=== PATIENT | male | born 1975 | race Hispanic/Latino ===

== ENCOUNTER → 2019-07-26 | Day surgery (SDC) | payer OTHER ==
[~2019-07-26] MED LIST: FENTANYL CITRATE/PF 100MCG/2 ML INJ ONE; LISINOPRIL10 MG PO; MIDAZOLAM HCL 2 MG/2 ML VIAL ONE; PROPOFOL IV EMULSION 10 MG/ML 50 ML VIAL ONE
--- OUTSIDE RECORDS SUMMARY | 2019-07-26 06:04 | XMS REPORT | Encounter Summary ---
Author Organization Unknown Address [address] [place] [address] Phone [phone] Care Team Providers Care Mold Sprayer Name Role Phone Hyun Chaudhry 3 [phone] Reason for Visit New Patient Instructions 1. Gastrointestinal hemorrhage sangrado gastrointestinal: instrucciones de cuidado - [gastrointestinal bleeding: care instructions] upper gastrointestinal endoscopy with biopsy, single or multiple (SURG) 2. Epigastric pain 3. Dark stools 4. Occult blood in stools Discussion Note: None recorded. Plan of Care Patient Instructions Stop all blood thinners 5 days prior to procedure. Nothing by mouth after midnight. Patient must have a responsible licensed commercial collections driver to accompany home after surgery. Only take blood pressure medication the morning of the procedure with sip of water. [facility] scheduling department will contact to schedule pre op date & time. [facility] pre op nurse will inform you time of arrival Reminders Provider Appointments None recorded. Lab None recorded. Referral None recorded. Procedures None recorded. Surgeries Upper Gastrointestinal Endoscopy with Biopsy, Single or Multiple (SURG) 07/06/2019 [facility] (Scheduling) Imaging None recorded. Medications No Medications Reported Medications Administered None recorded. Vitals Height Weight BMI Blood Pressure 5 ft 7 in 211.6 lbs 33.1 kg/m2 150/99 mm[Hg] Lab Results None recorded. Allergies Code Code System Name Reaction Severity Status Onset NKDA Problems Name Status Onset Date Source Hypertensive Disorder Active 07/03/2019 Procedures None recorded. Vaccine List None recorded. Social History Tobacco Smoking Status Never Smoker Past Encounters 07/03/2019 Gastrointestinal Hemorrhage; Epigastric Pain; Dark Stools; Occult Blood in Stools Barney Kirby, DO: [address], [address], [place] [address], Ph. [phone] History of Present Illness Abdominal Pain Reported By: Patient Abdominal Pain: Location: epigastric. Quality: pain, bloating, tender. Severity: moderate. Duration: cannot identify. Onset/Timing: gradual. Context: IBS. Modifying Factors: nothing gives relief. Associated Symptoms: no fever, no chills, no blood in the urine, no shortness of breath Colon & Rectum Reported By: Patient HPI: Symptoms: no symptoms, no abdominal pain, no recent change in weight, no fever, no chills, no constipation, no diarrhea, no cramping, no vomiting, no abdominal swelling, no straining with defication, no obstruction symptoms, no feelings of heaviness or pressure in lower abdomen/pelvis, no red blood on the surface of the stool, no light colored stools, black or tarry stools. Onset/Timing: no nocturnal symptoms, symptoms gone now. Location: asymptomatic. Quality: no mucus, no bleeding, does not wake from sleep. Alleviating factors: clears on its own. Aggravating factors: nothing makes it worse. Context: no history of colonoscopy, no prior radiation of the pelvis or abdomen, no prior chemotherapy, no prior surgery for an ulcer, no prior surgery for diverticula, no prior closed surgery converted to open, no surgery during childhood, no prior abdominal surgery, no cancer, no groin nodes/masses, no prior colon surgery, no pneumaturia Note:2 recent blood transfusions <div>GI Bleed </div> Review of Systems General Surgery ROS Reported By: Patient Constitutional: Constitutional: no fever, no night sweats, no significant weight gain, no significant weight loss, no exercise intolerance Eyes: Eyes: no dry eyes, no irritation, no vision change ENMT: Ears: no difficulty hearing, no ear pain. Nose: no frequent nosebleeds, no nose/sinus problems. Mouth/Throat: no sore throat, no bleeding gums, no snoring, no dry mouth, no mouth ulcers, no oral abnormalities, no teeth problems, No Post Nasal Dripping, Constantly clearing the throat, hiccups, itching throat, (normal) weak voice: constant Respiratory: Respiratory: no cough, no wheezing, no shortness of breath, no coughing up blood Cardiovascular: Cardiovascular: no chest pain, no arm pain on exertion, no shortness of breath when walking, no shortness of breath when lying down, no palpitations, no known heart murmur Gastrointestinal: Gastrointestinal: no vomiting, normal appetite, no diarrhea, not vomiting blood, abdominal pain, black or tarry stools Genitourinary: Genitourinary: no incontinence, no difficulty urinating, no hematuria, no increased frequency Musculoskeletal: Musculoskeletal: no muscle aches, no muscle weakness, no arthralgias/joint pain, no back pain, no swelling in the extremities Integumentary: Skin: no abnormal mole, no jaundice, no rashes Neurologic: Neurologic: no loss of consciousness, no weakness, no numbness, no seizures, no dizziness, no headaches Physical Exam General Surgery Exam ([facility]) Reported By: Patient Head: Head: normocephalic, atraumatic Neck: Neck: no enlargement, no jugular venous distention, no lymphadenopathy Breast/Thorax: Breast: unlabored Cardiovascular: Heart Auscultation: regular rate and rhythm, no murmurs, no gallops, no rubs Lungs: CTAB breath sounds normal, good air movement, clear to auscultation, no wheezing, no rales/crackles, no rhonchi Back: Lumbar / Lumbosacral Spine normal flexion, normal extension, no spasms, palpation tenderness none Abdomen: Inspection and Palpation: soft, non-distended, no masses, epigastric tenderness. Hernia: none palpable Neurologic: Cranial Nerves: grossly intact
[2019-07-26 08:50] VITALS: BP 119/86
--- NOTE | 2019-07-26 13:24 | Operative Report ---
DATE OF PROCEDURE: 07/26/2019 SURGEON: Vikas Flynn MD PROCEDURE: EGD with biopsies. INDICATIONS FOR EGD: Heartburn, bloating, anemia. MEDICATIONS: The patient was done under MAC, please see anesthesiologist's note. PROCEDURE IN DETAIL: With the patient in left lateral decubitus position, a flexible fiberoptic Olympus gastroscope was introduced into the esophagus under direct visualization without any difficulty. There was some patchy erythema noted in distal esophagus. The scope was then advanced with ease into the stomach traversing a large hiatal hernia. Mucosa overlying the antrum and the body revealed some diffuse erythema and low-grade to moderate edema, and biopsies were obtained and sent to stain for H. pylori. Pylorus was of normal contour and shape, it was intubated with ease and the scope was advanced all the way to the second portion of the duodenum. The scope was then withdrawn slowly. Mucosa overlying the proximal and second portion and duodenal bulb grossly was unremarkable. Biopsies were obtained to rule out sprue. The scope was then withdrawn back into the stomach and retroflexed and some ulcers were noted on the hiatal hernia fold, which are compatible with Supa's ulcer. Also, the patient appears to have a paraesophageal component of his hiatal hernia. The scope was then straightened out, it was subsequently withdrawn, and the patient tolerated the procedure well. IMPRESSION: 1. Distal esophagitis. 2. Hiatal hernia with paraesophageal component. 3. Supa's ulcers. 4. Gastritis, biopsied, biopsies sent to stain for Helicobacter pylori. 5. Rule out sprue. PLAN: Follow up histology. Initiate Protonix 40 mg one p.o. q.a.m. before meals. Vikas Flynn MD [facility] [place][id number] cc: Dr. Tegan Munoz
== END | disposition home or self-care (01) ==
LOC: OR 06:00
PROVIDERS: ATTEND Internal Medicine Gastroenterology
DX: D64.89 Other specified anemias (principal); K29.50 Unspecified chronic gastritis without bleeding; B96.81 Helicobacter pylori [H. pylori] as the cause of diseases classified elsewhere; K25.9 Gastric ulcer, unspecified as acute or chronic, without hemorrhage or perforation; K20.9 Esophagitis, unspecified; K21.9 Gastro-esophageal reflux disease without esophagitis; K44.9 Diaphragmatic hernia without obstruction or gangrene; I10 Essential (primary) hypertension; Z01.810 Encounter for preprocedural cardiovascular examination; Z68.33 Body mass index [BMI] 33.0-33.9, adult
CPT/HCPCS: 43239; 93005; J2250; J2704; J3010